=== PATIENT | male | born 1950 | race Asian ===

== ENCOUNTER 2018-10-27 20:15 | Emergency (ER) | payer MEDICARE, SELFPAY ==
[2018-10-27 20:20] VITALS: BP 151/82; PULSE 78; RESP 18; TEMP 36.3; O2SAT 98
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
[2018-10-27] MEDS: TET,DIPH,PERTUSS(ACELL),VAC/PF 0.5 ML SYRINGE IM (21:56)
== END 2018-10-28 00:13 | disposition short-term general hospital (02) ==
PROVIDERS: Emergency Provider Emergency Medicine
DX: S01.111A Laceration without foreign body of right eyelid and periocular area, initial encounter (principal); Z23 Encounter for immunization
CPT/HCPCS: 90471; 99283; 90715